=== PATIENT | female | born 1930 | race Caucasian/White ===

== ENCOUNTER 2017-06-11 08:49 | Emergency (ER) | payer MEDICARE ==
[~2017-06-11] VITALS: Ht 162.6 cm; Wt 52.4 kg
[~2017-06-11 08:49] MED LIST: AMIO200T PO; ASPI81TA19 PO; CHOL20003 PO; CIPR500T2 PO; COQ-150C PO; ENAL5TAB PO; ESTR42.5V VAGINAL; FLUC150T PO; FOLI5CAP PO; LEVO150T52 PO; MELA1CAP; METH2.5T PO; METH4TAB6 PO; METO25TA3 PO; POTA4.25 PO; PROBCAP11; ROSU1TAB4 PO; VALA500T PO
[2017-06-11 08:55] VITALS: BP 217/101; PULSE 64; RESP 16; TEMP 97.9; O2SAT 98
--- NOTE | 2017-06-11 09:15 | PD ---
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 Patient states that the symptoms started 2 days ago. Patient states that the symptoms are worse this morning. Patient denies any fever. Patient denies headache. Patient denies any chest pain or shortness of breath. Patient states that she has mild lower abdominal discomfort. Patient denies any back pain. PFSH Past Medical History Hx Anticoagulant Therapy: Yes (asa 81) Cardiovascular Problems: Yes (htn on meds, bypass 3 vessel, stents total of 3 , [place]) Cerebrovascular Accident: Yes (tia) Diabetes: Yes (type 2) Respiratory: Yes (c-pap) ?: Not Social History Tobacco Use: No Allergies-Medications (Allergen,Severity, Reaction): Coded Allergies: penicillin G (Unverified Allergy, Severe, Anaphylaxis, 06/11/17) Sulfa (Sulfonamide Antibiotics) (Verified Allergy, Mild, rash, 06/11/17) Reported Meds & Prescriptions Reported Meds & Active Scripts Active Diflucan (Fluconazole) 150 Mg Tab 150 Mg PO ONCE Estrace Vaginal (Estradiol) 0.01% Cream 1 Gm VAGINAL HS Reported Probiotic (Lactobacillus Acidophilus) 10 Billion Cell Cap 1 Cap PO DAILY Folic Acid 1 Mg Tablet 1 Mg PO DAILY Levoxyl (Levothyroxine Sodium) 150 Mcg Tab 150 Mcg PO DAILY Amiodarone (Amiodarone HCl) 200 Mg Tab 200 Mg PO DAILY D3 (Cholecalciferol) 2,000 Unit Cap 2,000 Units PO DAILY Metoprolol Tartrate 25 Mg Tab 25 Mg PO DAILY Aspir-Low (Aspirin) 81 Mg Tabdr 81 Mg PO DAILY Methotrexate 2.5 Mg Tab 2.5 Mg PO Q7D 3 tabs every week Rosuvastatin (Rosuvastatin Calcium) 5 Mg Tab 5 Mg PO HS Potassium Citrate ER 15 Meq Tab 15 Meq PO DAILY Review of Systems General / Constitutional: No: Fever Eyes: No: Visual changes HENT: No: Headaches Cardiovascular: No: Chest Pain or Discomfort Respiratory: No: Shortness of Breath Gastrointestinal: No: Abdominal Pain Genitourinary: Positive: Frequency, Dysuria Musculoskeletal: No: Pain Skin: No Rash Neurologic: No: Weakness Psychiatric: No: Depression Endocrine: No: Polydipsia Hematologic/Lymphatic: No: Easy Bruising Physical Exam Narrative GENERAL: Well-nourished, well-developed patient. SKIN: Focused skin assessment warm/dry. HEAD: Normocephalic. EYES: No scleral icterus. No injection or drainage. NECK: Supple, trachea midline. No JVD or lymphadenopathy. CARDIOVASCULAR: Regular rate and rhythm without murmurs, gallops, or rubs. RESPIRATORY: Breath sounds equal bilaterally. No accessory muscle use. GASTROINTESTINAL: Abdomen soft, non-tender, nondistended. MUSCULOSKELETAL: No cyanosis, or edema. BACK: Nontender without obvious deformity. No CVA tenderness. Neurologic exam normal. Data Data Last Documented VS Vital Signs Date Time Temp Pulse Resp B/P (MAP) Pulse Ox O2 Delivery O2 Flow Rate FiO2 06/11/17 08:55 97.9 64 16 217/101 (139) 98 Orders Orders Urinalysis - C+S If Indicated (06/11/17 09:12) Urine Culture (06/11/17 09:28) Ed Discharge Order (06/11/17 09:59) Labs Laboratory Tests Test 06/11/17 09:28 Urine Collection Type CLEAN CATCH Urine Color YELLOW Urine Turbidity CLEAR Urine pH 7.0 Urine Specific [place] 1.015 Urine Protein 30 mg/dL Urine Glucose (UA) NEG mg/dL Urine Ketones NEG mg/dL Urine Occult Blood SMALL Urine Nitrite NEG Urine Bilirubin NEG Urine Leukocyte Esterase SMALL Urine RBC 0-3 /hpf Urine WBC 9-14 /hpf Urine WBC Clumps OCC Urine Squamous Epithelial Cells 0-5 /hpf Microscopic Urinalysis Comment CULTURE INDICATED MDM Medical Decision Making Medical Screen Exam Complete: Yes Emergency Medical Condition: Yes Differential Diagnosis Differential diagnosis including urethritis, UTI. Narrative Course 86 years old female with dysuria and frequency. Diagnosis Primary Impression: UTI (urinary tract infection) Qualified Codes: N30.00 - Acute cystitis without hematuria Patient Instructions: General Instructions Additional Instructions: Cipro as directed. Follow-up with personal physician. Return if worse. Med/Other Pt SpecificInfo: Prescription(s) given Scripts Fluconazole (Diflucan) 150 Mg Tab 150 MG PO ONCE for Infection, #1 TAB 0 Refills Prov: Ze Cárdenas MD 06/11/17 Disposition: 01 DISCHARGE HOME Condition: Stable Ze Cárdenas MD Jun 11, 2017 09:15
[2017-06-11] MEDS ORDERED: CIPR-9 PO (09:17)
[2017-06-11] MEDS ORDERED: PHEN0.4T PO (09:17)
[2017-06-11] MEDS ORDERED: FOLI1TAB6 PO (09:30)
[2017-06-11] MEDS ORDERED: LACTCAP8 PO (09:30)
[2017-06-11 09:48] LABS: BILIRUBIN, URINE NEG (NEG); BLOOD, URINE SMALL (NEG); GLUCOSE,URINE NEG (NEG); KETONE, URINE NEG (NEG); NITRITE,URINE NEG (NEG); URINE LEUKOCYTE ESTERASE SMALL (NEG)
[2017-06-11 09:56] LABS: URINE COLOR YELLOW (YELLW/STRAW)
[2017-06-11 09:57] LABS: RBC, URINE 0-3 /hpf (0-3); SQUAMOUS EPITHELIAL CELL URINE 0-5 /hpf (0-5); WHITE BLOOD CELL CLUMPS OCC
[2017-06-11] MEDS ORDERED: DIFL150T PO (09:59)
== END 2017-06-11 10:20 | disposition home or self-care (01) ==
LOC: PHED 08:49
DX: N39.0 Urinary tract infection, site not specified (principal); I10 Essential (primary) hypertension; E11.9 Type 2 diabetes mellitus without complications; Z86.73 Personal history of transient ischemic attack (TIA), and cerebral infarction without residual deficits; Z88.0 Allergy status to penicillin; Z88.2 Allergy status to sulfonamides; Z79.82 Long term (current) use of aspirin; Z79.899 Other long term (current) drug therapy
CPT/HCPCS: 81001; 87086; 99283

== ENCOUNTER 2017-09-06 08:45 | Emergency (ER) | payer MEDICARE ==
[~2017-09-06] VITALS: Ht 160 cm; Wt 50.6 kg
[~2017-09-06 08:45] MED LIST changes: -CHOL20003 PO; -CIPR500T2 PO; -COQ-150C PO; +D200CAP2 PO; +DIFL150T PO; -ENAL5TAB PO; -FLUC150T PO; +FOLI1TAB6 PO; -FOLI5CAP PO; +LACTCAP8 PO; -MELA1CAP; -METH4TAB6 PO; -PROBCAP11; -VALA500T PO
[2017-09-06 08:49] VITALS: BP 202/93; PULSE 80; RESP 16; TEMP 98; O2SAT 97
[2017-09-06] MEDS ORDERED: MAGN250T11 PO (09:04)
[2017-09-06] MEDS ORDERED: MEDR4TAB PO (09:04)
[2017-09-06] MEDS ORDERED: FURO20TA PO (09:04)
[2017-09-06] MEDS ORDERED: DOXY100C PO (09:22)
--- NOTE | 2017-09-06 09:22 | PD ---
HPI Chief Complaint: Skin Problem Time Seen by Provider: 09:02 Travel History International Travel<30 days: No Contact w/Intl Traveler<30days: No Traveled to known affect area: No History of Present Illness HPI This is a 87-year-old female here with wound to the left lower extremity present for approximately one week. She denies injury or trauma. No fever or chills. No change in blood sugars. She is unsure what caused the wound. She reports she may have bumped it on a piece of furniture or the area just opened due to her lower extremity weeping which has been present for the last several months. She reports the area became slightly red and had some yellowish discharge prompting her visit today. Symptom severity is mild. No aggravating or alleviating factors. 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) Social History Alcohol Use: No Tobacco Use: No Substance Use: No Allergies-Medications (Allergen,Severity, Reaction): Coded Allergies: penicillin G (Unverified Allergy, Severe, Anaphylaxis, 09/06/17) Sulfa (Sulfonamide Antibiotics) (Verified Allergy, Mild, rash, 09/06/17) Reported Meds & Prescriptions Reported Meds & Active Scripts Active Estrace Vaginal (Estradiol) 0.01% Cream 1 Gm VAGINAL HS Reported Medrol (Methylprednisolone) 4 Mg Tab 4 Mg PO DAILY Furosemide 20 Mg Tab 20 Mg PO DAILY Magnesium Oxide 250 Mg Tab 250 Mg PO DAILY PRN Probiotic (Lactobacillus Acidophilus) 10 Billion Cell Cap 1 Cap PO DAILY Folic Acid 1 Mg Tablet 1 Mg PO DAILY Levoxyl (Levothyroxine Sodium) 150 Mcg Tab 150 Mcg PO DAILY D3 (Cholecalciferol) 2,000 Unit Cap 2,000 Units PO DAILY Metoprolol Tartrate 25 Mg Tab 25 Mg PO DAILY Aspir-Low (Aspirin) 81 Mg Tabdr 81 Mg PO DAILY Rosuvastatin (Rosuvastatin Calcium) 5 Mg Tab 5 Mg PO HS Potassium Citrate ER 15 Meq Tab 15 Meq PO DAILY Review of Systems Except as stated in HPI: all other systems reviewed are Neg General / Constitutional: No: Fever Physical Exam Narrative GENERAL: Alert and well-appearing 87-year-old female. SKIN: Warm and dry. 5 x 3 cm area of mild erythema with central open wound. The wound bed is shallow with a small amount of yellowish discharge. No induration or fluctuance. No lymphangitis. HEAD: Normocephalic. EYES: No injection or drainage. NECK: Supple, trachea midline. No JVD or lymphadenopathy. CARDIOVASCULAR: Regular rate and rhythm without murmurs, gallops, or rubs. RESPIRATORY: Breath sounds equal bilaterally. No accessory muscle use. GASTROINTESTINAL: Abdomen soft, non-tender, nondistended. MUSCULOSKELETAL: No cyanosis, or edema. 1+ pitting edema and ankles bilaterally. 2+ dorsal pedis pulse bilaterally. No calf tenderness. Data Data Last Documented VS Vital Signs Date Time Temp Pulse Resp B/P (MAP) Pulse Ox O2 Delivery O2 Flow Rate FiO2 09/06/17 08:49 98.0 80 16 202/93 (129) 97 MDM Medical Decision Making Medical Screen Exam Complete: Yes Emergency Medical Condition: Yes Differential Diagnosis Venous-stasis ulcer, wound infection, abscess, cellulitis Narrative Course 87-year-old female here with a mildly infected wound to her left lower extremity. This appears to be a venous stasis ulcer that opened several days ago. She has no fevers or change in blood sugars. She is clinically well- appearing. She has multiple allergies. She will be prescribed doxycycline. Wound care discussed. She is to follow-up with her doctor in 2 days for wound recheck. Return precautions were discussed. Patient and family verbalized understanding and agreed plan. Diagnosis Primary Impression: Infected wound Referrals: Primary Care Physician Additional Instructions: Cleansed the area daily with soap and water. Apply clean dry dressing. Follow-up with her doctor for recheck Scripts Doxycycline Hyclate (Doxycycline Hyclate) 100 Mg Cap 100 MG PO BID for Infection, #20 CAP 0 Refills Prov: Emlei Neville 09/06/17 Disposition: 01 DISCHARGE HOME Condition: Stable Emeli Neville Sep 06, 2017 09:22
== END 2017-09-06 09:35 | disposition home or self-care (01) ==
LOC: PHEFT 08:45
DX: E11.622 Type 2 diabetes mellitus with other skin ulcer (principal); L97.929 Non-pressure chronic ulcer of unspecified part of left lower leg with unspecified severity; L08.9 Local infection of the skin and subcutaneous tissue, unspecified; E07.9 Disorder of thyroid, unspecified; E78.00 Pure hypercholesterolemia, unspecified; I10 Essential (primary) hypertension; I25.10 Atherosclerotic heart disease of native coronary artery without angina pectoris
CPT/HCPCS: 99283